=== PATIENT | male | born 1960 ===

== ENCOUNTER 2021-05-11 06:00 | Outpatient (RCR) | payer OTHER, SELFPAY | END 2021-06-05 23:59 | disposition home or self-care (01) | LOC: MOT 06:00 | PROVIDERS: PCP Physician Assistant; Referring Provider Physician Assistant; Visit Provider Physician Assistant | DX: S46.311D Strain of muscle, fascia and tendon of triceps, right arm, subsequent encounter (principal); X58.XXXD Exposure to other specified factors, subsequent encounter | CPT/HCPCS: 97035; 97110; 97140; 97166 ==

== ENCOUNTER 2021-06-06 06:00 | Outpatient (RCR) | payer OTHER, SELFPAY | END 2021-07-06 23:59 | disposition home or self-care (01) | LOC: MOT 06:00 | PROVIDERS: PCP Physician Assistant; Referring Provider Physician Assistant; Visit Provider Physician Assistant | DX: S46.311D Strain of muscle, fascia and tendon of triceps, right arm, subsequent encounter (principal) | CPT/HCPCS: 97035; 97110; 97140 ==

== ENCOUNTER 2021-07-07 06:00 | Outpatient (RCR) | payer OTHER, SELFPAY | END 2021-08-03 23:59 | disposition home or self-care (01) | LOC: MOT 06:00 | PROVIDERS: PCP Physician Assistant; Referring Provider Physician Assistant; Visit Provider Physician Assistant | DX: S46.311D Strain of muscle, fascia and tendon of triceps, right arm, subsequent encounter (principal) | CPT/HCPCS: 97110; 97140 ==

== ENCOUNTER 2021-08-04 06:00 | Outpatient (RCR) | payer OTHER, SELFPAY | END 2021-08-24 23:59 | disposition home or self-care (01) | LOC: MOT 06:00 | PROVIDERS: PCP Physician Assistant; Referring Provider Physician Assistant; Visit Provider Physician Assistant | DX: S46.311D Strain of muscle, fascia and tendon of triceps, right arm, subsequent encounter (principal); X58.XXXD Exposure to other specified factors, subsequent encounter | CPT/HCPCS: 97110; 97140 ==